=== PATIENT | male | born 1940 | race Caucasian/White ===

== ENCOUNTER 2020-12-13 17:45 | Inpatient (IN) | payer MEDICARE, OTHER ==
[~2020-12-13] VITALS: Ht 182.9 cm; Wt 96.7 kg
--- NOTE | 2020-12-13 18:21 | NUR ---
SHAKER SCREEN OPERATOR: PT TO ROOM FROM LOBBY VIA W/C
--- NOTE | 2020-12-13 18:49 | NUR ---
ERP WAS IN TO SEE PT.
--- NOTE | 2020-12-13 18:50 | NUR ---
PT'S FRIEND/CAREGIVER OF MANY YEARS STATES PT HAS BEEN VERY WEAK, DISORIENTED X SEVERAL DAYS SINCE HE TOOK MEDS AFTER GETTING 2 TEETH EXTRACTED. PT AND CAREGIVER LIVE IN [place], ARE IN [place] VISITING A FRIEND. PT SOMNOLENT BUT OPENS EYES ON COMMAND AND CONVERSES, OX2-3. PT HAS CONDOM CATH IN PLACE FOR INCONTINENCE. TAKES 7 DIFFERENT EYEDROPS FOR GLAUCOMA, IRITIS, OTHER EYE CONDITIONS.
--- NOTE | 2020-12-13 18:55 | NUR ---
PT TO CT VIA [facility].
[2020-12-13] MEDS ORDERED: SODIUM CHLORIDE 0.9% 1,000ML IVBOLUS ONE ×2 (19:00→20:30)
[2020-12-13] MEDS ORDERED: SODIUM CHLORIDE FLUSH 10ML SYR IVF ONE (19:00)
--- NOTE | 2020-12-13 19:00 | NUR ---
SPO2 AT 88-90% WHILE PT RESTING IN [facility]. PLACED ON O2 AT 2L NC, SPO2 INCREASED TO 97%. PT'S CAREGIVER DENIES PT USING O2 OR CPAP AT HOME. CAREGIVER'S RECORDS SHOW PT HAS HX OF SLEEP APNEA.
[2020-12-13 19:50] LABS: MEAN CORPUSCULAR HEMOGLOBIN 34.1 pg (27.5-34.5); MEAN CORPUSCULAR HGB CONC 32.2 g/dL (33.2-36.2); MEAN PLATELET VOLUME 9.8 fL (7.4-10.4); PLATELET COUNT 203 x10^3/uL (130-400); RED BLOOD COUNT 3.76 x10^6/uL (4.38-5.82); RED CELL DISTRIBUTION WIDTH 15.4 % (9.4-14.8)
[2020-12-13 20:02] LABS: ALANINE AMINOTRANSFERASE 23 U/L (12-78); ALBUMIN 2.5 g/dL (3.4-5.0); ANION GAP 10 mmol/L (5-15); CALCIUM 9.2 mg/dL (8.5-10.1); CHLORIDE 107 mmol/L (98-107); CREATININE 3.89 mg/dL (0.7-1.3)
[2020-12-13] MEDS ORDERED: ATOR80TA PO (20:02)
[2020-12-13] MEDS ORDERED: VALA500T4 PO (20:02)
[2020-12-13] MEDS ORDERED: LOSA25TA2 PO (20:02)
[2020-12-13] MEDS ORDERED: DABI150C PO (20:02)
[2020-12-13] MEDS ORDERED: EYEDROPS EACHEYE (20:04)
[2020-12-13] MEDS ORDERED: POLY17PO5 PO (20:04)
[2020-12-13] MEDS ORDERED: TAMS-11 PO (20:04)
[2020-12-13 20:07] LABS: ALKALINE PHOSPHATASE 97 U/L (45-117); BILIRUBIN,TOTAL 0.6 mg/dL (0.2-1.0); TOTAL PROTEIN 7.3 g/dL (6.4-8.2); TROPONIN I < 0.015 ng/mL (0.000-0.045)
[2020-12-13 20:09] LABS: MD YES
[2020-12-13 20:11] LABS: BAND#(MANUAL) 0.77 x10^3/uL; BANDS%(MANUAL) 3 % (0-7); LYMPH#(MANUAL) 0.51 x10^3/uL (1-3.4); LYMPHS% (MANUAL) 2 % (22-44); MONOS#(MANUAL) 2.82 x10^3/uL (0.3-2.7); MONOS% (MANUAL) 11 % (2-9); SEGS% (MANUAL) 84 % (42-75)
[2020-12-13 20:12] LABS: <PLATELET ESTIMATE> ADEQUATE; <PLT MORPHOLOGY> NORMAL PLT MORPH
--- NOTE | 2020-12-13 20:48 | NUR ---
PT OFF UNIT IN IMAGING
--- NOTE | 2020-12-13 21:28 | NUR ---
INSERTED STRAIGHT CATHETER FOR URINE SAMPLE. WITHDREW 1300ML OF DARK, TEA COLORED URINE. PT TOLERATED WELL. INSERTING MENON CATHETER PER MD ORDER.
[2020-12-13 21:42] LABS: MICROSCOPIC AUTO
--- NOTE | 2020-12-13 22:00 | NUR ---
ANOTHER 350ML HAS DRAINED OUT OF MENON CATH. URINE IS DARK TEA COLORED/BROWN, WITH A LOT OF SEDIMENT. PT REMAINS SOMNOLENT, RESTING IN GURNEY, AWAKENS SLIGHTLY TO PHYSICAL STIMULATION.
[2020-12-13] MEDS ORDERED: CEFTRIAXONE PMX 1GM/50ML 50 ML IV ONE (22:30)
[2020-12-13] MEDS ORDERED: CEFTRIAXONE PMX 1GM/50ML 50 ML ONE ×2 (22:39→23:53)
--- NOTE | 2020-12-13 22:53 | NUR ---
D/T SLEEP APNEA, PT'S SPO2 DROPS DOWN TO 70s AT TIMES, THEN RETURNS TO 90s ON 2L NC. SWITCHED TO OXYMASK AT 5L O2. ADMITTING GERIATRIC NURSE PRACTITIONER AT NOW TALKING WITH ONE OF PT'S CAREGIVERS.
--- NOTE | 2020-12-13 23:00 | NUR ---
CAREGIVERS LEAVING FOR THE NIGHT. LESLY STOCKTON IS PT'S LONGTIME FRIEND & CAREGIVER, . SHANNAN STOCKTON IS LESYL'S SON AND ALSO A DRAGLINE MECHANIC CAREGIVER FOR PT.
[2020-12-13] MEDS ORDERED: PRED5DRO2 EACHEYE (23:24)
[2020-12-13] MEDS ORDERED: TIMO1DRO6 OP (23:24)
[2020-12-13] MEDS ORDERED: BIMA2.5D OP (23:30)
[2020-12-14] MEDS ORDERED: CEFTRIAXONE PMX 1GM/50ML 50 ML IV ONE
[2020-12-14] MEDS ORDERED: SODIUM CHLORIDE 0.9% 1,000 ML IV SCH
[2020-12-14] MEDS ORDERED: PHARMACY MAY ADJ FOR RENAL FX MC PRN
[2020-12-14] MEDS ORDERED: LIDODERM 5% PATCH TD PRN
[2020-12-14] MEDS ORDERED: BISACODYL 10 MG SUPP PR PRN
[2020-12-14] MEDS ORDERED: POLYETHYLENE GLYCOL 17 GM PACKET PO PRN
[2020-12-14] MEDS ORDERED: MELATONIN 5 MG TABLET PO PRN
[2020-12-14] MEDS ORDERED: HEPARIN 5,000 UNITS/ML, 1ML SQ SCH
[2020-12-14] MEDS ORDERED: hydrALAzine 20 MG/ML, 1ML IVPush PRN
--- NOTE | 2020-12-14 00:10 | NUR ---
2ND GRAM OF ROCEPHIN INFUSING. PT MOVED TO RM 16, REPORTED TO LALO BAER. PT STILL SLEEPING, AWAKENS TO VOICE/PHYSICAL STIMULATION.
--- NOTE | 2020-12-14 00:11 | NUR ---
received report from KEYUR Lynn
[2020-12-14] MEDS: DABIGATRAN MC SCH ×6 (00:30→20:30)
[2020-12-14] MEDS: HEPARIN MC SCH ×6 (00:30→20:30)
[2020-12-14] MEDS: SODIUM CHLORIDE 0.9% 1,000 ML IV SCH ×2 (01:00→07:52)
--- NOTE | 2020-12-14 01:03 | NUR ---
patient awaiting bed assignment. no changes. sleeping, mouth breather.
--- NOTE | 2020-12-14 02:01 | NUR ---
bed assigned. report to KEYUR Lala
[2020-12-14 02:48] VITALS: BP 130/82
[2020-12-14 05:55] LABS: MEAN CORPUSCULAR HEMOGLOBIN 34.3 pg (27.5-34.5); MEAN CORPUSCULAR HGB CONC 32.8 g/dL (33.2-36.2); MEAN PLATELET VOLUME 9.7 fL (7.4-10.4); PLATELET COUNT 191 x10^3/uL (130-400); RED BLOOD COUNT 3.38 x10^6/uL (4.38-5.82); RED CELL DISTRIBUTION WIDTH 15.1 % (9.4-14.8)
[2020-12-14 06:12] LABS: CHLORIDE 112 mmol/L (98-107)
[2020-12-14 06:20] VITALS: BP 130/77
[2020-12-14 06:29] LABS: MD YES
[2020-12-14 06:31] LABS: BAND#(MANUAL) 0.91 x10^3/uL; BANDS%(MANUAL) 5 % (0-7); LYMPH#(MANUAL) 2.35 x10^3/uL (1-3.4); LYMPHS% (MANUAL) 13 % (22-44); MONOS#(MANUAL) 1.45 x10^3/uL (0.3-2.7); MONOS% (MANUAL) 8 % (2-9); SEG#(MANUAL) 13.39 x10^3/uL (1.8-6.8); SEGS% (MANUAL) 74 % (42-75)
[2020-12-14 06:32] LABS: ACANTHOCYTES 1+; CRENATED 1+
[2020-12-14 06:33] LABS: <PLATELET ESTIMATE> ADEQUATE; ECHINOCYTES 1+; LARGE PLATELETS 1+; MICROCYTOSIS 1+
[2020-12-14 06:34] LABS: OVALOCYTES 1+
[2020-12-14 06:39] LABS: ANION GAP 9 mmol/L (5-15); CALCIUM 8.6 mg/dL (8.5-10.1); CREATININE 3.16 mg/dL (0.7-1.3); FREE T4 (FREE THYROXINE) 1.06 ng/dL (0.76-1.46)
[2020-12-14] MEDS ORDERED: ACETAMINOPHEN 325 MG TABLET PO PRN ×2 (08:30)
[2020-12-14] MEDS: predniSOLONE OPHTH 0.125%, 5ML EACHEYE SCH (09:00)
[2020-12-14] MEDS: TIMOLOL MALEATE OP SCH ×3 (09:00→21:00)
[2020-12-14] MEDS: TAMSULOSIN 0.4 MG CAP.ER.24H PO SCH (10:06)
[2020-12-14] MEDS: ATORVASTATIN 80 MG TABLET PO SCH (10:06)
[2020-12-14] MEDS: POLYETHYLENE GLYCOL 17 GM PACKET PO SCH (10:06)
[2020-12-14 13:36] VITALS: BP 89/49
[2020-12-14] MEDS ORDERED: BISACODYL 10 MG SUPP PR ONE (14:00)
[2020-12-14] MEDS: DABIGATRAN 150 MG CAPSULE PO SCH ×2 (16:03→21:24)
[2020-12-14 19:41] VITALS: BP 149/82
[2020-12-14] MEDS: TEMPLATE NON-FORMULARY MED. (Bimatoprost (Lumigan) 1 DROP) OP SCH ×2 (21:00)
[2020-12-14] MEDS: SENNOSIDES 8.6 MG TABLET PO SCH (21:24)
[2020-12-14] MEDS: CEFTRIAXONE PMX 2GM/50ML 50 ML IVPB SCH (23:09)
[2020-12-15] MEDS: HEPARIN MC SCH ×6 (00:30→21:07)
[2020-12-15] MEDS: DABIGATRAN MC SCH ×6 (00:30→21:07)
[2020-12-15 01:06] VITALS: BP 146/72
[2020-12-15 06:03] LABS: BASOPHILS % (AUTO) 0 % (0-1); EOSINOPHILS % (AUTO) 0 % (1-7); LYMPHOCYTES % (AUTO) 8 % (22-44); MEAN CORPUSCULAR HGB CONC 33.1 g/dL (33.2-36.2); MEAN PLATELET VOLUME 9.8 fL (7.4-10.4); MONOCYTES % (AUTO) 9 % (2-9); NEUTROPHILS % (AUTO) 83 % (42-75); PLATELET COUNT 196 x10^3/uL (130-400); RED BLOOD COUNT 3.04 x10^6/uL (4.38-5.82); RED CELL DISTRIBUTION WIDTH 15.2 % (9.4-14.8)
[2020-12-15 06:07] LABS: MD NO
[2020-12-15 06:20] LABS: ANION GAP 5 mmol/L (5-15); CALCIUM 8.5 mg/dL (8.5-10.1); CHLORIDE 113 mmol/L (98-107)
[2020-12-15 06:27] LABS: CREATININE 2.02 mg/dL (0.7-1.3)
[2020-12-15 09:32] VITALS: BP 159/76
[2020-12-15] MEDS: TAMSULOSIN 0.4 MG CAP.ER.24H PO SCH (10:23)
[2020-12-15] MEDS: POLYETHYLENE GLYCOL 17 GM PACKET PO SCH (10:23)
[2020-12-15] MEDS: DABIGATRAN 150 MG CAPSULE PO SCH ×2 (10:23→21:08)
[2020-12-15] MEDS: ATORVASTATIN 80 MG TABLET PO SCH (10:23)
[2020-12-15] MEDS: CARVEDILOL 6.25 MG TABLET PO SCH ×2 (10:23→17:30)
[2020-12-15] MEDS: TIMOLOL MALEATE OP SCH ×2 (10:24→21:08)
[2020-12-15] MEDS: SODIUM CHLORIDE 0.9% 1,000 ML IV SCH (10:31)
[2020-12-15] MEDS: predniSOLONE OPHTH 0.125%, 5ML EACHEYE SCH (10:57)
[2020-12-15 12:49] VITALS: BP 138/74
[2020-12-15 18:59] VITALS: BP 145/79
[2020-12-15] MEDS: TEMPLATE NON-FORMULARY MED. (Bimatoprost (Lumigan) 1 DROP) OP SCH (21:07)
[2020-12-15] MEDS: SENNOSIDES 8.6 MG TABLET PO SCH (21:08)
[2020-12-15] MEDS: CEFTRIAXONE PMX 2GM/50ML 50 ML IVPB SCH (23:09)
[2020-12-16] VITALS (9 sets, daily range): BP systolic 150–213; BP diastolic 71–84
[2020-12-16] MEDS: SODIUM CHLORIDE 0.9% 1,000 ML IV SCH (02:47)
[2020-12-16] MEDS: CARVEDILOL 6.25 MG TABLET PO SCH ×2 (06:22→17:30)
[2020-12-16] MEDS: DABIGATRAN 150 MG CAPSULE PO SCH ×2 (09:43→20:35)
[2020-12-16] MEDS: TAMSULOSIN 0.4 MG CAP.ER.24H PO SCH (09:44)
[2020-12-16] MEDS: ATORVASTATIN 80 MG TABLET PO SCH (09:44)
[2020-12-16] MEDS: TIMOLOL MALEATE OP SCH ×2 (09:45→20:36)
[2020-12-16] MEDS: predniSOLONE OPHTH 0.125%, 5ML EACHEYE SCH (09:45)
[2020-12-16] MEDS: POLYETHYLENE GLYCOL 17 GM PACKET PO SCH (09:45)
[2020-12-16] MEDS: hydrALAzine 20 MG/ML, 1ML IV PRN (15:09)
[2020-12-16] MEDS: SENNOSIDES 8.6 MG TABLET PO SCH (20:36)
[2020-12-16] MEDS: TEMPLATE NON-FORMULARY MED. (Bimatoprost (Lumigan) 1 DROP) OP SCH (20:36)
[2020-12-16] MEDS: CEFTRIAXONE PMX 2GM/50ML 50 ML IVPB SCH (22:37)
[2020-12-17] MEDS ORDERED: SODIUM CHLORIDE 0.9% 1,000 ML IV SCH (01:00)
[2020-12-17] MEDS: hydrALAzine 20 MG/ML, 1ML IV PRN (02:20)
[2020-12-17 02:24] VITALS: BP 170/83
[2020-12-17 04:19] VITALS: BP 145/79
[2020-12-17] MEDS: CARVEDILOL 6.25 MG TABLET PO SCH (05:26)
[2020-12-17] MEDS ORDERED: SENNOSIDES 8.6 MG TABLET PO SCH (09:00)
[2020-12-17] MEDS ORDERED: BISACODYL 10 MG SUPP PR PRN (09:00)
[2020-12-17 09:42] VITALS: BP 100/61
[2020-12-17] MEDS ORDERED: SENN-99 PO (09:46)
[2020-12-17] MEDS ORDERED: BISA10SU4 PR (09:46)
[2020-12-17] MEDS ORDERED: HYDR-3341 PO (09:46)
[2020-12-17] MEDS ORDERED: CARV6.2512 PO (09:46)
[2020-12-17] MEDS ORDERED: MELA5TAB14 PO (09:46)
[2020-12-17] MEDS ORDERED: CIPR500T87 PO (09:50)
[2020-12-17] MEDS: ATORVASTATIN 80 MG TABLET PO SCH (09:59)
[2020-12-17] MEDS: POLYETHYLENE GLYCOL 17 GM PACKET PO SCH (09:59)
[2020-12-17] MEDS: TAMSULOSIN 0.4 MG CAP.ER.24H PO SCH (09:59)
[2020-12-17] MEDS: DABIGATRAN 150 MG CAPSULE PO SCH (09:59)
[2020-12-17] MEDS: predniSOLONE OPHTH 0.125%, 5ML EACHEYE SCH (09:59)
[2020-12-17] MEDS: TIMOLOL MALEATE OP SCH (10:00)
== END 2020-12-17 12:13 | disposition home or self-care (01) | DRG 871 ==
LOC: ED 21:55 → EDIP 22:47 → 4EST 12-14 02:59
PROVIDERS: ADMIT Internal Medicine; ATTEND Internal Medicine
PROC: 0T9B70Z Drainage of Bladder with Drainage Device, Via Natural or Artificial Opening (ICD-10-PCS; principal; 2020-12-13)
DX: A41.9 Sepsis, unspecified organism (principal); G93.41 Metabolic encephalopathy; J96.00 Acute respiratory failure, unspecified whether with hypoxia or hypercapnia; N17.9 Acute kidney failure, unspecified; N13.6 Pyonephrosis; E78.5 Hyperlipidemia, unspecified; G47.33 Obstructive sleep apnea (adult) (pediatric); I10 Essential (primary) hypertension; I48.0 Paroxysmal atrial fibrillation; I71.4 Abdominal aortic aneurysm, without rupture; F03.90 Unspecified dementia, unspecified severity, without behavioral disturbance, psychotic disturbance, mood disturbance, and anxiety; K59.00 Constipation, unspecified; N40.1 Benign prostatic hyperplasia with lower urinary tract symptoms; R33.8 Other retention of urine; Z66 Do not resuscitate; Z79.01 Long term (current) use of anticoagulants; Z86.73 Personal history of transient ischemic attack (TIA), and cerebral infarction without residual deficits; Z91.19 Patient's noncompliance with other medical treatment and regimen; Z91.013 Allergy to seafood
CPT/HCPCS: 36415; 36600; 70450; 71045; 74018; 74176; 80048; 80053; 81001; 82565; 82607; 82803; 83605; 83880; 84145; 84439; 84443; 84484; 85025; 87040; 87086; 93005; 93306; 93880; 96361; 96365; G0378; J0696; J0360; J7030